=== PATIENT | female | born 1990 | race African-American/Black ===

== ENCOUNTER 2020-01-03 05:04 | Emergency (ER) | payer MEDICAID, OTHER ==
[~2020-01-03] VITALS: Ht 157.5 cm; Wt 95.3 kg
--- NOTE | 2020-01-03 05:10 | NUR ---
BIB EMS C/O R ANKLE, R KNEE PAIN S/P FALLING OFF STAIRS . PT DENIED KO OR HITTING HER HEAD. PT WAS PLACED ON A MONITOR. VSS.
[2020-01-03] MEDS ORDERED: ACETAMINOPHEN 650 MG/20.3 ML UDC PO ONE (05:30)
[2020-01-03] MEDS ORDERED: KETOROLAC TROMETHAMINE INJ 60 MG/2 ML VIAL IM ONE (05:30)
[2020-01-03] MEDS ORDERED: ACETAMINOPHEN 325 MG TABLET ONE (05:31)
[2020-01-03] MEDS ORDERED: KETOROLAC TROMETHAMINE INJ 30 MG/ML VIAL ONE (05:31)
--- NOTE | 2020-01-03 05:37 | NUR ---
PT SIGNED WAIVER FOR TORADOL INJ
--- NOTE | 2020-01-03 06:00 | NUR ---
PT WAS PROVIDED W/ R ANKLE WALKER BOOT. MEDICALLY CLEAR FOR D/C. Written and verbal after care instructions given. Patient verbalizes understanding of instruction. Pt will get an uber to get back home.
[2020-01-03 06:02] VITALS: BP 115/63
== END 2020-01-03 06:03 | disposition home or self-care (01) ==
LOC: ER 05:06
DX: S90.01XA Contusion of right ankle, initial encounter (principal); M25.561 Pain in right knee; W10.8XXA Fall (on) (from) other stairs and steps, initial encounter; Y93.89 Activity, other specified; Y92.89 Other specified places as the place of occurrence of the external cause; Y99.8 Other external cause status
CPT/HCPCS: 73564; 73590; 73610; 96372; 99284; J1885